=== PATIENT | male | born 1965 | race Caucasian/White ===

== ENCOUNTER → 2023-08-09 | Outpatient (CLI) | payer MEDICARE, OTHER ==
[2023-08-09] MEDS: REGADENOSON 0.4 MG/5 ML PF SYG IVP ONE (15:51)
== END | disposition home or self-care (01) ==
LOC: SHCH 08:59
PROVIDERS: ATTEND Internal Medicine Cardiovascular Disease
DX: R06.00 Dyspnea, unspecified (principal); R07.9 Chest pain, unspecified; R11.0 Nausea; R51.9 Headache, unspecified
CPT/HCPCS: 78452; 96374; 93017; J2785; A9500 ×2

== ENCOUNTER 2023-09-06 09:28 | Day surgery (SDC) | payer MEDICARE ==
[2023-09-05 14:15] LABS: BASOPHILS # (AUTO) 0.04 K/uL (0.00-0.20); BASOPHILS % (AUTO) 0.6 % (0.0-5.0); EOSINOPHILS % (AUTO) 1.6 % (0.0-8.0); IMMATURE GRANULOCYTE ABSOLUTE 0.02 K/uL (0-1); LYMPHOCYTES # (AUTO) 1.2 K/uL (1.0-4.8); LYMPHOCYTES % (AUTO) 19.6 % (21.0-51.0); MEAN CORPUSCULAR HEMOGLOBIN 28.4 pg (27.0-33.0); MEAN CORPUSCULAR HGB CONC 33.6 g/dL (32.0-36.0); MEAN CORPUSCULAR VOLUME 84.6 fL (79-99); MONOCYTES # (AUTO) 0.5 K/uL (0.1-1.0); MONOCYTES % (AUTO) 7.7 % (3.0-13.0); NEUTROPHILS # (AUTO) 4.4 K/uL (1.8-7.7); NEUTROPHILS % (AUTO) 70.2 % (40.0-77.0); PLATELET COUNT (AUTO) 202 K/uL (130-400); RED BLOOD CELL COUNT(AUTO) 5.91 MIL/uL (4.50-6.20); RED CELL DISTRIBUTION WIDTH 12.9 % (11.0-15.5); WHITE BLOOD COUNT (AUTO) 6.2 K/uL (4.8-10.8)
[2023-09-05 14:17] VITALS: BP 109/74; PULSE 60; RESP 18
[2023-09-05 14:25] LABS: CREATININE 0.7 mg/dL (0.5-1.5); POTASSIUM 4.3 mmol/L (3.5-5.1)
[2023-09-05 14:26] LABS: INR 0.98 (0.85-1.15); PROTHROMBIN TIME 11.4 SEC (9.6-11.6)
[2023-09-05 14:27] LABS: PARTIAL THROMBOPLASTIN TIME 33.7 SEC (26.3-35.5)
[2023-09-05 15:38] LABS: B-TYPE NATRIURETIC PEPTIDE 113 pg/mL (0-100)
[~2023-09-06] VITALS: Ht 175.3 cm; Wt 133.4 kg
[2023-09-06] VITALS (9 sets, daily range): BP systolic 121–146; BP diastolic 62–78; PULSE 61–69; RESP 16–20
[~2023-09-06 09:28] MED LIST: AEC81 PO; APIX5TAB PO; EMPA10TA PO; HYDR-4068 PO; METO-408 PO; OMEP40CA21 PO; ROSU10TA28 PO; SOTA120T PO; UBID1CAP56 PO
[2023-09-06] MEDS: DiphenhydrAMINE HCL 50 MG/ML VIAL IV ONE (12:15)
[2023-09-06] MEDS: SOLU-MEDROL 125MG VIAL IVP ONE (12:15)
[2023-09-06] MEDS ORDERED: MIDAZOLAM HCL 1 MG/ML 2ML VIAL ONE (17:02)
[2023-09-06] MEDS ORDERED: FENTANYL CITRATE PF 50 MCG/1 ML 2ML VIAL ONE (17:02)
[2023-09-06] MEDS ORDERED: IOHEXOL-350 50ML VIAL IV ONE (17:02)
[2023-09-06] MEDS ORDERED: IOHEXOL-350 75 ML VIAL IV ONE (17:02)
[2023-09-06] MEDS ORDERED: LIDOCAINE HCL 400MG/20ML VIAL ONE (17:02)
[2023-09-06] MEDS ORDERED: NICARDIPINE 25MG INJ IV ONE (17:03)
[2023-09-06] MEDS ORDERED: HEPARIN 10,000 UNIT/10ML (1,000 UNIT/ML) VIAL ONE (17:03)
[2023-09-06] MEDS ORDERED: SOLU-MEDROL 125MG VIAL ONE (17:16)
[2023-09-06] MEDS ORDERED: NITROGLYCERIN 50MG VIAL ONE (17:19)
[2023-09-06] MEDS ORDERED: 0.9%NACL 1000ML 1,000 ML IV SCH (18:30)
== END 2023-09-06 21:55 | disposition home or self-care (01) ==
LOC: DAH 09:28
PROVIDERS: ATTEND Internal Medicine Cardiovascular Disease
DX: I25.119 Atherosclerotic heart disease of native coronary artery with unspecified angina pectoris (principal); I48.0 Paroxysmal atrial fibrillation; I11.0 Hypertensive heart disease with heart failure; I50.22 Chronic systolic (congestive) heart failure; J44.9 Chronic obstructive pulmonary disease, unspecified; G47.33 Obstructive sleep apnea (adult) (pediatric); E66.01 Morbid (severe) obesity due to excess calories; K21.9 Gastro-esophageal reflux disease without esophagitis; E11.9 Type 2 diabetes mellitus without complications; E78.2 Mixed hyperlipidemia; M19.90 Unspecified osteoarthritis, unspecified site; I25.2 Old myocardial infarction; Z79.899 Other long term (current) drug therapy; Z95.5 Presence of coronary angioplasty implant and graft; Z79.82 Long term (current) use of aspirin; Z79.01 Long term (current) use of anticoagulants; Z98.890 Other specified postprocedural states; Z87.891 Personal history of nicotine dependence; Z90.89 Acquired absence of other organs; Z83.3 Family history of diabetes mellitus; Z88.8 Allergy status to other drugs, medicaments and biological substances; Z88.3 Allergy status to other anti-infective agents; Z68.41 Body mass index [BMI] 40.0-44.9, adult
CPT/HCPCS: 80048; 83880; 85025; 85610; 85730; 36415; 71045; 93005; 93458; 82948; C1769; C1894 ×3; C1760; J1200; J3010; J3490 ×3; J2930 ×2; J1644 ×3; J2250; Q9967; 99156; 99157

== ENCOUNTER 2023-10-23 14:10 | Emergency (ER) | payer MEDICARE, MEDICAID ==
[~2023-10-23] VITALS: Ht 180.3 cm; Wt 127.0 kg
[~2023-10-23 14:10] MED LIST changes: +DIGO250T PO; +FURO40TA5 PO; -METO-408 PO; +METO25 PO; +POTA20PA32 PO; -ROSU10TA28 PO; +ROSU10TA72 PO; -SOTA120T PO
[2023-10-23] MEDS: DILTIAZEM 25MG INJ IVP ONE (14:41)
[2023-10-23 14:51] LABS: BASOPHILS # (AUTO) 0.05 K/uL (0.00-0.20); BASOPHILS % (AUTO) 0.3 % (0.0-5.0); EOSINOPHILS # (AUTO) 0.08 K/uL (0.00-0.70); EOSINOPHILS % (AUTO) 0.4 % (0.0-8.0); HEMATOCRIT 43.9 % (42-54); IMMATURE GRANULOCYTE ABSOLUTE 0.55 K/uL (0-1); LYMPHOCYTES # (AUTO) 0.8 K/uL (1.0-4.8); LYMPHOCYTES % (AUTO) 4.3 % (21.0-51.0); MEAN CORPUSCULAR HEMOGLOBIN 27.8 pg (27.0-33.0); MEAN CORPUSCULAR HGB CONC 33.3 g/dL (32.0-36.0); MEAN CORPUSCULAR VOLUME 83.6 fL (79-99); MONOCYTES # (AUTO) 1.6 K/uL (0.1-1.0); MONOCYTES % (AUTO) 8.7 % (3.0-13.0); NEUTROPHILS # (AUTO) 15.7 K/uL (1.8-7.7); NEUTROPHILS % (AUTO) 83.4 % (40.0-77.0); NUCLEATED RED BLOOD CELLS 0.4 % (0.0-0.19); PLATELET COUNT (AUTO) 222 K/uL (130-400); RED BLOOD CELL COUNT(AUTO) 5.25 MIL/uL (4.50-6.20); RED CELL DISTRIBUTION WIDTH 19.4 % (11.0-15.5); WHITE BLOOD COUNT (AUTO) 18.8 K/uL (4.8-10.8)
[2023-10-23 15:04] LABS: CREATININE 1.4 mg/dL (0.5-1.3); POTASSIUM 3.8 mmol/L (3.5-5.1)
[2023-10-23 15:08] LABS: ALBUMIN 2.5 g/dL (3.5-5.0); BILIRUBIN,TOTAL 7.6 mg/dL (0.2-1.0); MAGNESIUM 2.1 mg/dL (1.80-2.40); TOTAL PROTEIN, SERUM 6.9 g/dL (6.0-8.3)
[2023-10-23] MEDS ORDERED: COMPOUND IV MISC 1 EACH IVSOLN MISC PRN (15:30)
[2023-10-23] MEDS ORDERED: COMPOUND IV REFRIGERATED 1 EACH IVSOLN MISC PRN (15:30)
[2023-10-23] MEDS: PANTOPRAZOLE 40MG INJ 80 MG in 0.9%NACL 100ML 100 ML IVP SCH (15:41)
[2023-10-23] MEDS: PANTOPRAZOLE 40 MG/VIAL IVP ONE (15:42)
[2023-10-23] MEDS: MORPHINE 2 MG SYG IVP ONE (16:42)
[2023-10-23 17:27] LABS: ABG BASE EXCESS -2.6 mmol/L (-2.0-3.0); ABG HCO3 18.9 mmol/L (21.0-28.0); ABG OXYGEN SATURATION 97.2 % (95.0-99.0); ABG PCO2 25 mmHg (35-48); ABG PH 7.491 (7.35-7.450); CARBON MONOXIDE 0.3; HHb 2.8; PO2, ARTERIAL BG 90.2 mmHg (83.0-108.0); VENT MODE, BG NC (ROOM AIR)
[2023-10-23] MEDS: CEFTRIAXONE 2GM VIAL IVPB ONE (18:13)
[2023-10-23] MEDS: [UNRECOGNIZED DRUG - OTHER] IV ONE (18:58)
[2023-10-23] MEDS: FOSPHENYTOIN SODIUM IV ONE (18:58)
[2023-10-23] MEDS: LEVETIRACETAM 500 MG/5 ML SD VIAL IV SCH (19:00)
[2023-10-23 22:31] VITALS: BP 123/68; PULSE 78; RESP 20; O2SAT 100
== END 2023-10-23 23:22 | disposition short-term general hospital (02) ==
LOC: EDH 14:10
DX: R41.82 Altered mental status, unspecified (principal); I48.91 Unspecified atrial fibrillation; I50.9 Heart failure, unspecified; I25.2 Old myocardial infarction; J44.9 Chronic obstructive pulmonary disease, unspecified; Z79.01 Long term (current) use of anticoagulants; Z79.82 Long term (current) use of aspirin; Z79.84 Long term (current) use of oral hypoglycemic drugs; Z79.899 Other long term (current) drug therapy; Z85.05 Personal history of malignant neoplasm of liver; R56.9 Unspecified convulsions; Z88.8 Allergy status to other drugs, medicaments and biological substances; Z91.041 Radiographic dye allergy status; Z95.5 Presence of coronary angioplasty implant and graft
CPT/HCPCS: 99285; 96365; 70450; 76700; 96375; 71045; 96367; 96366; 82947; 84443; 82550; 83735; 84484; 80053; 82803; 85025; 83605 ×2; 36415; 96368; 96376; 93005; 36600; 82435; 84132; 84295; 82948; 85018; Q2009; J1953; J2270; J0696; J3490; C9113 ×2